=== PATIENT | male | born 1955 | race African-American/Black ===

== ENCOUNTER 2016-07-21 08:31 | Day surgery (SDC) | payer OTHER ==
[2016-07-21] MEDS ORDERED: AK-DILATE 2.5% OPHTH 1 DOSE OP ONE ×3 (08:51→08:56)
[2016-07-21] MEDS ORDERED: ALCAINE or OPHTHETIC 1 DOSE AFFEYE ONE (08:51)
[2016-07-21] MEDS ORDERED: MYDRIACIL OPHTH 1 DOSE AFFEYE ONE ×3 (08:51→08:56)
[2016-07-21] MEDS ORDERED: TETRACAINE 0.5% OPHTH 1 DOSE AFFEYE ONE (09:03)
[2016-07-21] MEDS ORDERED: TYLENOL 325 MG TAB PO ONE (09:28)
[2016-07-21 11:34] VITALS: BP 173/83
== END 2016-07-21 09:28 | disposition home or self-care (01) ==
LOC: SURG1 08:31
PROVIDERS: ATTEND Ophthalmology
PROC: 08QF3ZZ Repair Left Retina, Percutaneous Approach (ICD-10-PCS; principal; 2016-07-21 12:15)
DX: E11.3512 Type 2 diabetes mellitus with proliferative diabetic retinopathy with macular edema, left eye (principal)
CPT/HCPCS: 67210